=== PATIENT | male | born 1975 | race Caucasian/White ===

== ENCOUNTER 2018-04-26 10:55 | Emergency (ER) | payer OTHER ==
[~2018-04-26] VITALS: Ht 182.9 cm; Wt 91.7 kg
[2018-04-26] MEDS ORDERED: NAPROXEN500 MG PO (11:49)
[2018-04-26 12:13] VITALS: BP 135/92
== END 2018-04-26 12:14 | disposition home or self-care (01) ==
LOC: EME 10:55
DX: M54.5 Low back pain (principal); G89.29 Other chronic pain
CPT/HCPCS: 99281; 99284